=== PATIENT | female | born 1975 | race Hispanic/Latino ===

== ENCOUNTER 2021-07-30 15:30 | Emergency (ER) | payer SELFPAY ==
--- NOTE | 2021-07-30 16:44 | Emergency Department Report ---
ED Recheck HPI - General Chief Complaint: Medical Clearance Stated Complaint: MED REFILLS Time Seen by Provider: 07/30/21 16:31 Source: patient Mode of arrival: Ambulatory Limitations: No Limitations - History of Present Illness Initial Comments: 46-year-old female presents to ED requesting refill on her Depakote which she takes for seizures, and lisinopril. Patient states she has been out of her medications x1 week. Patient is also requesting a refill on her Xanax she has also been out x1 week. Complaint: medication refill request -: week(s) (1) Returns Today for: request for prescription Context: ran out of medication Associated Symptoms: none - Related Data Previous Rx's Medication Instructions Recorded Last Taken Type Divalproex Dr [Depakote Dr] 500 mg PO BID #30 tablet 07/30/21 Unknown Rx lisinopriL [Lisinopril] 20 mg PO QDAY #30 tablet 07/30/21 Unknown Rx Allergies Allergy/AdvReac Type Severity Reaction Status Date / Time No Known Allergies Allergy Unverified 07/30/21 15:35 ED Review of Systems ROS: Stated complaint: MED REFILLS Other details as noted in HPI Comment: All other systems reviewed and negative ED Past Medical Hx - Medications Home Medications: Home Medications Medication Instructions Recorded Confirmed Last Taken Type Divalproex Dr [Depakote Dr] 500 mg PO BID #30 tablet 07/30/21 Unknown Rx lisinopriL [Lisinopril] 20 mg PO QDAY #30 tablet 07/30/21 Unknown Rx ED Physical Exam - General Limitations: No Limitations General appearance: alert, in no apparent distress - Head Head exam: Present: atraumatic, normocephalic - Eye Eye exam: Present: normal appearance - ENT ENT exam: Present: mucous membranes moist - Neck Neck exam: Present: normal inspection - Respiratory Respiratory exam: Present: normal lung sounds bilaterally. Absent: respiratory distress - Cardiovascular Cardiovascular Exam: Present: regular rate, normal rhythm - Extremities Exam Extremities exam: Present: normal inspection - Neurological Exam Neurological exam: Present: alert, oriented X3 - Psychiatric Psychiatric exam: Present: normal affect, normal mood - Skin Skin exam: Present: warm, dry, intact, normal color ED Course Vital Signs 07/30/21 07/30/21 07/30/21 15:34 16:55 18:13 Temperature 98.3 F Pulse Rate 98 H 94 H Respiratory 18 14 18 Rate Blood Pressure 130/88 Blood Pressure 136/78 [Left] O2 Sat by Pulse 100 100 100 Oximetry ED Recheck MDM - Medical Decision Making 46-year-old female presents to ED for medication refills. Refills given. Outpatient follow-up advised, return precautions given. Critical care attestation.: If time is entered above; I have spent that time in minutes in the direct care of this critically ill patient, excluding procedure time. ED Disposition Clinical Impression: Medication refill Disposition: 01 HOME / SELF CARE / HOMELESS Is pt being admited?: No Condition: Stable Instructions: Medicine Refill at the Emergency Department Prescriptions: Divalproex Dr [Depakote Dr] 500 mg PO BID #30 tablet lisinopriL [Lisinopril] 20 mg PO QDAY #30 tablet Referrals: [facility] [Provider Group] - 3-[address] [facility] [Outside] - 3-5 Days YONY MUHAMMAD MD [Staff Physician] - 3-5 Days Time of Disposition: 16:42
[2021-07-30 16:58] VITALS: BP 136/78
== END 2021-07-30 18:14 | disposition home or self-care (01) ==
LOC: ED 15:30
DX: R56.9 Unspecified convulsions (principal); Z76.0 Encounter for issue of repeat prescription
CPT/HCPCS: 99282